=== PATIENT | female | born 1970 | race Caucasian/White ===

== ENCOUNTER 2020-12-19 17:13 | Emergency (ER) | payer BC, SELFPAY ==
[2020-12-19 17:20] VITALS: BP 148/100; PULSE 105; RESP 18; TEMP 36.2; O2SAT 98
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
[2020-12-19 17:57] LABS: INR 0.8; Prothrombin Time 12.1 Seconds (11.1-14.7)
[2020-12-19 17:58] LABS: Partial Thromboplastin Time 26.9 SECONDS (22.3-36.8)
[2020-12-19 18:52] LABS: D Dimer 0.51 ug/mL (<0.48)
[2020-12-19] MEDS: APIXABAN 5 MG TABLET 10 MG PO (20:22)
[2020-12-19 20:25] VITALS: BP 141/99; PULSE 84; RESP 12; TEMP 36.3; O2SAT 99
== END 2020-12-19 20:25 | disposition home or self-care (01) ==
PROVIDERS: Emergency Provider Emergency Medicine
DX: M79.662 Pain in left lower leg (principal)
CPT/HCPCS: 36415; 85380; 85610; 85730; 99283; A9270

== ENCOUNTER 2020-12-20 06:55 | Outpatient (CLI) | payer BC, SELFPAY ==
--- NOTE | ~2020-12-20 | XR_ITS ---
EXAMINATION: XR chest 2V 12/20/2020 11:12 INDICATION: Tobacco use PROCEDURE: 2 view chest COMPARISON: Comparison to multiple prior studies sequentially, with oldest reviewed study dated 01/2016. FINDINGS: The lungs are clear. The cardiomediastinal silhouette is within normal limits. There are no pleural effusions. There is no pneumothorax suspected. Left pleural density unchanged compared w ith 03/20/2016, likely focal extrapleural fat. There is a surgical anchor in the right humeral head. IMPRESSION: 1: NO ACUTE CARDIOPULMONARY DISEASE. Reviewed, dictated and finalized at location B.
--- NOTE | ~2020-12-20 | US_ITS ---
EXAMINATION: US venous doppler [facility] DATE: 12/20/2020 07:53 INDICATION: Lower limb swelling and erythema TECHNIQUE: Grayscale ultrasound images without and with compression and Doppler ultrasound images of the left lower extremity veins were obtained. COMPARISON: None. FINDINGS: The visualized portions of left common femoral vein, profunda (deep) femoral vein, femoral vein, popl iteal vein, peroneal veins, posterior tibial veins, gastrocnemius vein and greater saphenous vein out flow are patent. IMPRESSION: 1. No deep venous thrombosis in the left lower limb. Reviewed, dictated and finalized at location A.
[2020-12-20 11:54] LABS: Hemoglobin A1C 6.1 % (<5.7)
[2020-12-20 11:57] LABS: Add Urine Microscopic? YES; Appearance Urine Cloudy (Clear); Bacteria Urine Trace /hpf; Bilirubin Urine Negative (Negative); Blood Urine Negative (Negative); Cholesterol 154 mg/dL (0-200); Color Urine Yellow (Yellow); Glucose Urine UA Negative (Negative); HDL Direct 43 mg/dL; Ketones Urine Negative (Negative); Leukocyte Esterase Ur Negative LEU/UL (NEGATIVE); Mucus Urine Few /lpf; Nitrate Urine Negative (Negative); Protein Urine Negative (Negative); Specific Grav Ur 1.018 (1.001-1.035); Squamous Epithelial Cell Urine Many /hpf (Few); Triglycerides 94 mg/dL (<150); Urobilinogen Urine Negative mg/dL (<2.0)
[2020-12-20 12:01] LABS: Rheumatoid Factor < 8.6 IU/ML (<12)
[2020-12-20 12:07] LABS: LDL Cholesterol Direct 91 mg/dL
[2020-12-20 12:29] LABS: Erythrocyte Sedimentation Rate 16 mm/hr (0-20)
[2020-12-20 12:30] LABS: Creatinine Urine 114.1 mg/dL
[2020-12-20 12:38] LABS: MALB Creatinine Ratio < 5.3 mg/g (0-30); Microalbumin Urine Random < 6.0 mg/L (0-16.7)
[2020-12-20 12:47] LABS: Free T4 Free Thyroxine 1.02 ng/mL (0.78-2.19); Vitamin D 25 Hydroxy 28.4 ng/mL
[2020-12-23 22:49] LABS: Anti Nuclear Antibody Pattern Nuclear, Speckled; Anti Nuclear Antibody Titer 1:40 (Negative)
== END 2020-12-20 06:56 | disposition home or self-care (01) ==
PROVIDERS: PCP Emergency Medicine; Visit Provider Emergency Medicine
DX: M79.662 Pain in left lower leg (principal); Z72.0 Tobacco use
CPT/HCPCS: 36415; 71046; 80061; 81001; 82043; 82306; 83036; 84439; 84443; 85652; 86038; 86039; 86430; 93971

== ENCOUNTER 2020-12-22 06:53 | Outpatient (CLI) | payer BC, SELFPAY ==
--- NOTE | ~2020-12-22 | CT_ITS ---
EXAMINATION: CT abdomen pelvis wo con DATE: 12/22/2020 07:14 INDICATION: Chronic pancreatitis TECHNIQUE: Computed tomography (CT) of the abdomen and pelvis was performed without intravenous contr ast. The dose-length product was 1302.17 mGy-cm. Automated exposure control and iterative reconstruct ion technique were employed. COMPARISON: CT dated 07/11/2016. FINDINGS: Lung bases are unremarkable. Heart size normal. No significant pleural or pericardial effus ion. No significant vascular abnormality. No lymphadenopathy. There are cholecystectomy clips. Fatty infiltration of the liver. The spleen, pancreas, adrenal glands and kidneys are unremarkable. N ormal appendix. No lymphadenopathy. No free air or free fluid. No lytic or blastic lesions. Nonobstru ctive bowel gas pattern. IMPRESSION: 1. No acute abdominal abnormality. 2: Hepatic steatosis. Reviewed, dictated and finalized at location B.
== END 2020-12-22 06:54 | disposition home or self-care (01) ==
PROVIDERS: PCP Emergency Medicine; Visit Provider Emergency Medicine
DX: K86.1 Other chronic pancreatitis (principal); R22.2 Localized swelling, mass and lump, trunk; K76.0 Fatty (change of) liver, not elsewhere classified
CPT/HCPCS: 74176

== ENCOUNTER 2020-12-22 07:28 | Outpatient (CLI) | payer BC, SELFPAY ==
--- NOTE | ~2020-12-22 | MM_ITS ---
EXAMINATION: MM screening светлана BI w iwona HISTORY: Screening mammogram TECHNIQUE: Craniocaudal and mediolateral oblique 3-D tomosynthesis images were obtained and synthetic 2-D images were generated. CAD analysis was submitted and interpreted. COMPARISON: No prior mammogram is available for comparison at this institution. BREAST PARENCHYMAL COMPOSITION: There are scattered areas of fibroglandular density. FINDINGS: RIGHT BREAST: There is a possible mass in the middle third of the inner breast approximately 7 cm fro m the nipple best appreciated on the craniocaudal view. LEFT BREAST: Asymmetry is present in the middle third of the outer breast on the craniocaudal view. IMPRESSION: 1. Bilateral breast findings as described above. 2. Additional mammographic views and possible breast ultrasound are recommended. BI-RADS Category 0: Incomplete: Needs additional imaging evaluation. Reviewed, dictated and finalized at location A. IMPRESSION: 1. Bilateral breast findings as described above. 2. Additional mammographic views and possible breast ultrasound are recommended . BI-RADS Category 0: Incomplete: Needs additional imaging evaluation.
== END 2020-12-22 07:29 | disposition home or self-care (01) ==
LOC: ANHIMG 07:32
PROVIDERS: PCP Emergency Medicine; Visit Provider Emergency Medicine
DX: Z12.31 Encounter for screening mammogram for malignant neoplasm of breast (principal); R92.8 Other abnormal and inconclusive findings on diagnostic imaging of breast
CPT/HCPCS: 77063; 77067

== ENCOUNTER 2020-12-23 07:31 | Outpatient (CLI) | payer BC, SELFPAY ==
--- NOTE | ~2020-12-23 | US_ITS ---
EXAMINATION: US soft tissue head and neck DATE: 12/23/2020 08:11 INDICATION: Several palpable nodules at the neck TECHNIQUE: Multiple grayscale and Doppler ultrasound images of the regions of concern at the neck wer e obtained. COMPARISON: None FINDINGS: 7 x 5 x 3 mm hypoechoic nodule the left of midline in the suboccipital posterior neck. There are a fe w normal sized and appearing hypoechoic lymph nodes with central fatty hilum at both the left and rig ht submandibular regions of concern, the largest on the right measuring 5 mm in maximal short axis di ameter and 8 mm on the left. Bilateral submandibular glands appear normal and symmetric. No other abn ormal masses or fluid collections identified. IMPRESSION: 1. Normal symmetric-appearing submandibular glands along with the few normal-sized lymph nodes in the bilateral submandibular regions of concern. 2. Nonspecific 7 x 5 x 3 mm hypoechoic nodule in the left suboccipital region of concern statisticall y most likely to represent an additional small lymph node. Reviewed, dictated and finalized at location A. IMPRESSION: 1. Normal symmetric-appearing submandibular glands along with the few normal-si zed lymph nodes in the bilateral submandibular regions of concern. 2. Nonspecific 7 x 5 x 3 mm hypoechoic nodule in the left suboccipital region o f concern statistically most likely to represent an additional small lymph node .
== END 2020-12-23 07:32 | disposition home or self-care (01) ==
PROVIDERS: PCP Emergency Medicine; Visit Provider Emergency Medicine
DX: R22.1 Localized swelling, mass and lump, neck (principal)
CPT/HCPCS: 76536

== ENCOUNTER 2021-01-11 13:49 | Outpatient (CLI) | payer BC, SELFPAY ==
--- NOTE | ~2021-01-11 | MMUS_ITS ---
EXAMINATION: MM diagnostic mammo BI, US breast RT limited HISTORY: Possible right breast mass and left breast asymmetry on screening mammogram TECHNIQUE: Additional 3-D tomosynthesis images of the breasts were performed and synthetic 2-D images were generated. CAD analysis was submitted and interpreted. High resolution limited right breast ult rasound was performed. COMPARISON: 12/22/2020 FINDINGS: MAMMOGRAPHIC FINDINGS: No persistent asymmetry is identified with spot compression views of the left breast. There is a 3 mm round, circumscribed, equal density mass in the middle third of the lower inner right breast at the 4:00 location 6.5 cm from the nipple best appreciated on craniocaudal tomosynthesis image 16/61. ULTRASOUND: There is a 4 mm oval, circumscribed, parallel, hypoechoic right breast mass with no posterior feature s or internal vascularity at the 4:00 location 3 cm from the nipple. IMPRESSION: 1. Probably benign right breast mass. 2. Recommend 6 month follow-up right diagnostic mammogram and ultrasound. BI-RADS category 3, probably benign findings. Reviewed, dictated and finalized at location A. IMPRESSION: 1. Probably benign right breast mass. 2. Recommend 6 month follow-up right diagnostic mammogram and ultrasound. BI-RADS category 3, probably benign findings.
== END 2021-01-11 13:50 | disposition home or self-care (01) ==
PROVIDERS: PCP Emergency Medicine; Visit Provider Emergency Medicine
DX: R92.8 Other abnormal and inconclusive findings on diagnostic imaging of breast (principal)
CPT/HCPCS: 76642; 77066

== ENCOUNTER → 2021-01-28 07:24 | Outpatient (CLI) | payer BC, SELFPAY ==
[2021-01-28 18:42] LABS: SARS-CoV-2 RNA PCR Negative
== END ==
PROVIDERS: PCP Emergency Medicine; Visit Provider Emergency Medicine
DX: Z20.822 Contact with and (suspected) exposure to COVID-19 (principal); J40 Bronchitis, not specified as acute or chronic
CPT/HCPCS: C9803; U0003; U0005

== ENCOUNTER → 2021-02-03 06:52 | Outpatient (CLI) | payer BC, SELFPAY ==
[2021-02-03 19:24] LABS: SARS-CoV-2 RNA PCR Negative
== END ==
PROVIDERS: PCP Emergency Medicine
DX: Z01.812 Encounter for preprocedural laboratory examination (principal); Z20.822 Contact with and (suspected) exposure to COVID-19; N63.0 Unspecified lump in unspecified breast
CPT/HCPCS: C9803; U0003; U0005